=== PATIENT | female | born 1975 | race Caucasian/White ===

== ENCOUNTER 2018-01-22 18:15 | Emergency (ER) | payer OTHER | END 2018-01-22 19:49 | disposition home or self-care (01) | LOC: JERFT 18:15 | PROC: 3E0233Z Introduction of Anti-inflammatory into Muscle, Percutaneous Approach (ICD-10-PCS; principal; 2018-01-22) | DX: M54.12 Radiculopathy, cervical region (principal) | CPT/HCPCS: 84703; 96372; 99281-25 ==

== ENCOUNTER 2019-05-30 10:44 | Emergency (ER) | payer OTHER ==
[2019-05-30 10:57] VITALS: BMI 31.1
[2019-05-30] MEDS ORDERED: METOCLOPRAMIDE HCL INJECTION 10 MG/2 ML VIAL IVPUSH ONE (11:24)
[2019-05-30] MEDS ORDERED: SODIUM CHLORIDE 0.9% 500 ML INFUS.BAG IV ONE (11:24)
[2019-05-30] MEDS ORDERED: KETOROLAC TROMETHAMINE 30 MG/1 ML VIAL IVPUSH ONE (11:24)
[2019-05-30] MEDS ORDERED: METOCLOPRAMIDE HCL INJECTION 10 MG/2 ML VIAL ONE (11:32)
[2019-05-30] MEDS ORDERED: KETOROLAC TROMETHAMINE 15 MG/ML VIAL ONE (11:33)
--- NOTE | 2019-05-30 11:58 | PDOC ---
History of Present Illness - General Chief Complaint: Headache Stated Complaint: HEADACHE following wisdom tooth extraction Time Seen by Provider: 05/30/19 11:15 - History of Present Illness Initial Comments: 05/30/19 11:45 CHIEF COMPLAINT: headache HISTORY OF PRESENT ILLNESS: 43 yo F with no significant PMH [facility] to [facility] with headache. Patient reports she had her right upper wisdom tooth extracted two days ago, and "was totally fine" yesterday but then she drank "some [place]" and then started throwing up and the site of her tooth extraction began to bleed. She states she "put gauze back there and there was a lot of blood, but then it stopped, and then I couldn't stop throwing up." She reports three episodes of vomiting, and when she woke up this morning she felt a severe headache and soreness to her neck. Denies fever, chills, vision changes, palpitations. No recent travel or sick contacts. PAST MEDICAL HISTORY: Denies past medical history FAMILY HISTORY: Denies SOCIAL HISTORY: Denies tobacco, alcohol, illicit drug use. SURGICAL HISTORY: Denies ALLERGIES: No known drug allergies REVIEW OF SYSTEMS General/Constitutional: Denies fever or chills. Denies weakness, weight change. HEENT: Denies change in vision. Denies ear pain or discharge. Denies sore throat. Cardiovascular: Denies chest pain or shortness of breath. Respiratory: Denies cough, wheezing, or hemoptysis. Gastrointestinal: 3 episodes of vomiting yesterday, none today. Denies rectal bleeding. Genitourinary: Denies dysuria, frequency, or change in urination. Musculoskeletal: Neck muscle soreness. Skin and breasts: Denies rash or easy bruising. Neurologic: Headache. Denies vertigo, loss of consciousness, or loss of sensation. PHYSICAL EXAM General Appearance: Well-appearing, appropriately dressed. No apparent distress. HEENT: EOMI, PERRLA, normal ENT inspection, normal voice, TMs normal, pharynx normal. No conjunctival pallor. No photophobia, scleral icterus. Neck: Supple. Trachea midline. No tenderness, rigidity, carotid bruit, stridor , lymphadenopathy, or thyromegaly. Respiratory/Chest: Lungs CTAB. No shortness of breath, chest tenderness, respiratory distress, accessory muscle use. No crackles, rales, rhonchi, stridor , wheezing, dullness Cardiovascular: RRR. S1, S2. No JVD, murmur, bradycardia, tachycardia. Vascular Pulses: Dorsalis-Pedis (R): 2+, Dorsalis-Pedis (L): 2+ Gastrointestinal/Abdominal: Normal bowel sounds. Abdomen soft, non-distended. No tenderness or rebound tenderness. No organomegaly, pulsatile mass, guarding , hernia, hepatomegaly, splenomegaly. Musculoskeletal/Extremities: Normal inspection. FROM of all extremities, normal capillary refill. Pelvis Stable. No CVA tenderness. No tenderness to extremities, pedal edema, swelling, erythema or deformity. Integumentary: Appropriate color, dry, warm. No cyanosis, erythema, jaundice or rash Neurologic: biochemistry technician II-XII intact. Fully oriented, alert. Appropriate mood/affect. Motor strength 5/5. No appreciable EOM palsy, facial droop or sensory deficit. A&Ox3, follow commands, respond appropriately CN2-12: conjugate gaze, pupil round, equal and reactive to light. Visual field full to confrontation. EOMI without nystagmus, pursuit is smooth without saccade. Facial sensation and muscle activation intact bilaterally. Hearing intact bilaterally. Palate elevate symmetrically. Shoulder shrug and neck turn full strength. Tongue protrude midline. Motor: UE and LE strength 5/5 throughout bilaterally. Muscle tone and bulk normal. Past History - Past Medical History Allergies/Adverse Reactions: Allergies Allergy/AdvReac Type Severity Reaction Status Date / Time No Known Allergies Allergy Verified 05/30/19 10:50 Home Medications: Ambulatory Orders Cyclobenzaprine HCl 10 mg PO Q8H PRN #14 tablet 01/22/18 Naproxen [Naprosyn -] 500 mg PO BID #14 tablet 01/22/18 Naproxen [Naprosyn] 500 mg PO BID #14 tablet 05/30/19 COPD: No - Suicide/Smoking/Psychosocial Hx Smoking History: Never smoked Have you smoked in the past 12 months: No Information on smoking cessation initiated: No Hx Alcohol Use: No Drug/Substance Use Hx: No Substance Use Type: None *Physical Exam - Vital Signs Last Vital Signs Temp Pulse Resp BP Pulse Ox 98.4 F 90 19 135/81 100 05/30/19 10:47 05/30/19 10:47 05/30/19 10:47 05/30/19 10:47 05/30/19 10:47 Medical Decision Making - Medical Decision Making 05/30/19 11:58 43 yo F with no significant PMH [facility]. -IVF, reglan, toradol, benadryl 05/30/19 12:53 Patient reassessed, at this time she states her headache has resolved. Advised patient to take medication as prescribed and follow up with her dentist this week. Advised patient of signs and symptoms for return to ED. Patient verbalized understanding and agrees to plan. *DC/Admit/Observation/Transfer Diagnosis at time of Disposition: Dental headache - Discharge Dispostion Disposition: HOME Condition at time of disposition: Stable Decision to Admit order: No - Prescriptions Prescriptions: Naproxen [Naprosyn] 500 mg PO BID #14 tablet - Referrals Referrals: Ghazala Barnett MD [Primary Care Provider] - - Patient Instructions Printed Discharge Instructions: DI for Headache Additional Instructions: Please follow up with your dentist within the next 1-2 days for further evaluation of your headache, likely secondary to your recent procedure. If you develop any change in vision, weakness, slurred speech, numbness, change in mental status, or any new or worsening symptoms, please return to the ER immediately. - Post Discharge Activity Forms/Work/School Notes: Back to Work
[2019-05-30 13:33] VITALS: BP 122/74; PULSE 78; TEMP 98
== END 2019-05-30 13:34 | disposition home or self-care (01) ==
LOC: JERFT 10:44
PROC: 3E033GC Introduction of Other Therapeutic Substance into Peripheral Vein, Percutaneous Approach (ICD-10-PCS; principal; 2019-05-30)
PROC: 3E033GC Introduction of Other Therapeutic Substance into Peripheral Vein, Percutaneous Approach (ICD-10-PCS; 2019-05-30)
PROC: 3E0333Z Introduction of Anti-inflammatory into Peripheral Vein, Percutaneous Approach (ICD-10-PCS; 2019-05-30)
DX: R51 Headache (principal)
CPT/HCPCS: 99283-25

== ENCOUNTER 2019-11-14 12:42 | Emergency (ER) | payer OTHER ==
[2019-11-14] MEDS ORDERED: KETOROLAC TROMETHAMINE 30 MG/1 ML VIAL IM ONE (12:56)
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
[2019-11-14 12:59] VITALS: BP 133/74; PULSE 73; TEMP 98.2; BMI 31.1
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
[2019-11-14] MEDS ORDERED: KETOROLAC TROMETHAMINE 30 MG/1 ML VIAL ONE (13:34)
== END 2019-11-14 14:20 | disposition home or self-care (01) ==
LOC: JERFT 12:42
PROC: 3E0233Z Introduction of Anti-inflammatory into Muscle, Percutaneous Approach (ICD-10-PCS; principal; 2019-11-14)
DX: M54.5 Low back pain (principal)
CPT/HCPCS: 96372; 99284-25